=== PATIENT | female | born 1950 | race Caucasian/White ===

== ENCOUNTER 2022-11-23 22:45 | Observation (INO) | payer MEDICARE, OTHER, SELFPAY ==
[2022-11-23 22:52] VITALS: BP 189/91; PULSE 68; RESP 17; TEMP 36.6; O2SAT 98; BMI 29.2
[2022-11-24] VITALS (21 sets, daily range): BP systolic 139–190; BP diastolic 64–89; PULSE 62–79; RESP 14–22; TEMP 36.6–37.3; O2SAT 92–97; BMI 29.0
--- NOTE | 2022-11-24 | DI.CT.S_ITS ---
PROCEDURE: CT ANGIO HEAD AND NECK INDICATIONS: syncope TECHNIQUE: After the administration of intravenous contrast, 1 mm thick sections acquired from the aortic arch through the [place]. Post-contrast 4.5 mm thick sections then re-acquired from the foramen magnum to the vertex. 3-dimensional dmngjps-fptskfrvo-jdejteqdae (MIP) and/or volume rendering reformats were acquired of the central intracranial vasculature and neck separately. For radiation dose reduction, the following was used: automated exposure control, adjustment of mA and/or kV according to patient size. COMPARISON: [facility], CT, CT HEAD/BRAIN WO CON, 11/24/2022, 4:03. FINDINGS: Image quality: Good Anterior circulation: ICAs: Mild calcifications. ACAs: Normal and symmetric MCAs: Normal and symmetric AComm: No aneurysm Venous sinuses: patent Posterior circulation: Dominance: Equal Vertebral arteries: No stenosis or occlusion. No aneurysm. Basilar artery: Unremarkable PComms: No aneurysm director of recruitment: Unremarkable NECK ANGIOGRAPHY Aortic arch and subclavian arteries: Normal flow, no aneurysm. CCAs: No stenosis, occlusion, or aneurysm. ICA origins (by NASCET criteria): No hemodynamically significant narrowing. ICAs: No stenosis, occlusion or aneurysm. ECAs: Origins are patent. Vertebral arteries: Unremarkable overall. Mhob-ra-yyvrotrn right vertebral artery origin calcifications. Extradural origin of the right PICA. Soft tissues: No significant mass, aneurysm, or lymphadenopathy Lung apices: No pneumothorax Bones: No acute or suspicious abnormality. IMPRESSION: No large vessel occlusion or high-grade stenosis. If there is high concern for infarct, consider MRI evaluation. Any quantitative measurements of stenosis were performed using NASCET criteria. Dictated by: Lei Johnson M.D. on 11/24/2022 at 11:45 Approved by: Lei Johnson M.D. on 11/24/2022 at 11:50
--- NOTE | 2022-11-24 03:44 | ED.FALL ---
HPI - Fall <Sofy Keller MD - Last Filed: 12/03/22 18:08> General Chief Complaint: Fall Stated Complaint: rt hand injury, recent surgery and fall Time Seen by Provider: 11/24/22 03:44 Source: patient Mode of arrival: Ambulatory History of Present Illness HPI Narrative: 72-year-old woman with history of hypertension hypothyroidism and reflux disease presents to the emergency room complaining of a fall earlier today where she landed on her right hand and has some scratches to her face. She has little recollection of the events surrounding the fall. She was apparently walking [place] knows that she fell has the abrasions noted that she was able to get back to the road and does not remember anything beyond that. She had carpal tunnel surgery on the right hand on October 27 and landed on palm on the right side with the wound from the surgery opening slightly. She continues to have similar numbness in a radial nerve distribution as prior to the fall and after the surgery. She does not report a headache, neck pain has no other complaints of musculoskeletal injury. She does not report recently that she is been feverish, coughing, palpitations, chest pain, vomiting or diarrhea. She notes that she has had a lot of postnasal drip and has been successfully using a Neti pot. Has had a slight sore throat related to the postnasal drip but has not felt particularly ill. She does not describe headaches and aside from the amnesia regarding actual events, no acute neurologic complaints. She and her daughter both note that over the last 2-3 months she is been having slightly increased shuffling steps and a sensation that she is going to fall as she is walking downhill and has been feeling that she needs to walk faster and faster. She believes that is what was happening when she fell today and suspects that she probably stumbled over her dog. Related Data Home Medications Medication Instructions Recorded Confirmed aspirin 81 mg tablet,delayed 81 mg PO DAILY 12/11/18 11/23/22 release (Jaron Low Dose Aspirin) fluticasone propionate 50 1 spray intranasal DAILY 08/25/21 11/23/22 mcg/actuation nasal spray,suspension levothyroxine 25 mcg capsule 25 mcg PO DAILY 08/25/21 11/23/22 lisinopril 2.5 mg tablet 2.5 mg PO DAILY 08/25/21 11/23/22 omeprazole 20 mg capsule,delayed 20 mg PO DAILY 08/25/21 11/23/22 release Allergies Allergy/AdvReac Type Severity Reaction Status Date / Time No Known Drug Allergies Allergy Verified 11/23/22 22:56 Review of Systems <Sofy Keller MD - Last Filed: 12/03/22 18:08> Review of Systems Narrative: Remainder of complete review of systems is otherwise unremarkable except for that included in the HPI. Patient History <Sofy Keller MD - Last Filed: 12/03/22 18:08> Medical History History of ectopic Hypertension Hypothyroidism (acquired) Family History Mother Cancer Social History household members: spouse Smoking Status: Never smoker Smoking Status: Never smoker alcohol intake frequency: other Substance Use Type: does not use Exam <Sofy Keller MD - Last Filed: 12/03/22 18:08> Initial Vital Signs Initial Vital Signs: Vital Signs Temperature 98 F 11/23/22 22:52 Pulse Rate 68 11/23/22 22:52 Respiratory Rate 17 11/23/22 22:52 Blood Pressure 189/91 H 11/23/22 22:52 Pulse Oximetry 98 11/23/22 22:52 Oxygen Delivery Method 11/23/22 22:52 General: Healthy appearing, in no acute distress. Able to give a complete and coherent history. Well-nourished well-developed HEENT: Moist mucous membranes, normal sclera with reactive pupils, abrasion to the left cheek and left side of her chin. Both seem to be minor but need to be further cleaned to fully assess Neck: No midline cervical spine tenderness, supple Respiratory: Lungs are clear to auscultation, no wheezing no rales no rhonchi. Full and symmetrical air movement Cardiac: Regular rate and rhythm no murmurs no bruits Abdomen: Soft, nontender, good bowel tones, no flank pain Skin: Warm and dry, no rashes Neurologic: Grossly neurologically intact with no obvious asymmetries or abnormalities. NIH score of 0 Extremities: No trauma, well perfused. Right palmar surface has the carpal tunnel surgical wound that has open slightly with some dirt and debris in it. Will need to be cleaned. She is some swelling to her fingers on the right hand and notes some numbness in the thumb index and middle finger that is unchanged Psych: Cooperative, appropriate insight and affect <Frankie Chase MD - Last Filed: 12/09/22 07:45> Initial Vital Signs Initial Vital Signs: Vital Signs Temperature 98 F 11/23/22 22:52 Pulse Rate 68 11/23/22 22:52 Respiratory Rate 17 11/23/22 22:52 Blood Pressure 189/91 H 11/23/22 22:52 Pulse Oximetry 98 11/23/22 22:52 Oxygen Delivery Method 11/23/22 22:52 Course <Sofy Keller MD - Last Filed: 12/03/22 18:08> Orders Ordered: Discontinued Medications Acetaminophen (Acetaminophen 325 Mg Tablet) 650 mg PO Q6H PRN PRN Reason: Fever/Mild Pain (1-3) Last Admin: 11/25/22 08:07 Dose: 650 mg Documented By: Admin: 11/24/22 16:43 Dose: 650 mg Documented By: BT Aspirin (Aspirin Ec 81 Mg Tablet) 81 mg PO DAILY [facility] Last Admin: 11/25/22 08:07 Dose: 81 mg Documented By: Admin: 11/24/22 12:21 Dose: 81 mg Documented By: BT Bacitracin (Bacitracin Oint 0.9 Gm Pckt) 1 applic TOP NOW ONE Stop: 11/24/22 05:30 Last Admin: 11/24/22 06:48 Dose: 1 applic Documented By: CHANDANA Enoxaparin Sodium (Enoxaparin 40 Mg/0.4 Ml Syringe) 40 mg SUBCUT DAILY [facility] Last Admin: 11/25/22 08:07 Dose: Not Given Documented By: Admin: 11/24/22 11:08 Dose: 40 mg Documented By: ROZ Lactated Ringer's (Lactated Ringers) 1,000 mls @ 100 mls/hr IV CONT [facility] Stop: 11/24/22 22:59 Last Admin: 11/24/22 12:13 Dose: Not Given Documented By: BT Thiamine HCl 500 mg/ Sodium (Chloride) 105 mls @ 420 mls/hr IV NOW ONE Stop: 11/24/22 11:31 Last Infusion: 11/24/22 13:26 Dose: 420 mls/hr Documented By: Admin: 11/24/22 12:21 Dose: 420 mls/hr Documented By: DAVID Levothyroxine Sodium (Levothyroxine 25 Mcg Tablet) 25 mcg PO 0600 [facility] Last Admin: 11/25/22 05:19 Dose: 25 mcg Documented By: ZIA Lidocaine/Prilocaine (Lidocaine/Prilocaine 30 Gm) 1 applic TOP NOW ONE Stop: 11/24/22 03:50 Last Admin: 11/24/22 07:06 Dose: Not Given Documented By: CHANDANA Lidocaine/Prilocaine (Lidocaine/Prilocaine 30 Gm) 1 applic TOP NOW ONE Stop: 11/24/22 03:54 Last Admin: 11/24/22 07:06 Dose: Not Given Documented By: CHANDANA Lidocaine/Prilocaine (Lidocaine/Prilocaine 30 Gm) 1 applic TOP NOW ONE Stop: 11/24/22 03:58 Last Admin: 11/24/22 07:06 Dose: Not Given Documented By: CHANDANA Lidocaine/Prilocaine (Lidocaine/Prilocaine 5 Gm) 5 gm TOP NOW ONE Stop: 11/24/22 07:01 Last Admin: 11/24/22 04:00 Dose: 5 gm Documented By: CHANDANA Lisinopril (Lisinopril 5 Mg Tablet) 5 mg PO NOW ONE Stop: 11/24/22 09:37 Last Admin: 11/24/22 10:11 Dose: 5 mg Documented By: ROZ Melatonin (Melatonin 3 Mg Tablet) 6 mg PO BEDTIME PRN PRN Reason: Insomnia Naloxone HCl (Naloxone 0.4 Mg/Ml Vial) 0.2 mg IV Q2MIN PRN PRN Reason: Opiate Reversal Pantoprazole Sodium (Pantoprazole Dr 20 Mg Tablet) 20 mg PO 0600 [facility] Last Admin: 11/25/22 05:19 Dose: 20 mg Documented By: ZIA Polyethylene Glycol (Polyethylene Glycol 3350 17 Gm Powd.Pack) 17 gm PO DAILY PRN PRN Reason: Constipation Sennosides (Sennosides 8.6 Mg Tablet) 8.6 mg PO BID PRN PRN Reason: Constipation Vital Signs Vital signs: Vital Signs - 8 hr 11/24/22 05:05 11/24/22 05:30 11/24/22 05:30 Pulse Rate 64 63 Respiratory Rate 19 20 Blood Pressure 176/82 H Pulse Oximetry 97 96 Oxygen Delivery Method Room Air 11/24/22 06:00 11/24/22 06:30 11/24/22 06:37 Pulse Rate 62 63 Respiratory Rate 21 Blood Pressure 180/86 H Pulse Oximetry 96 97 Oxygen Delivery Method 11/24/22 06:37 11/24/22 07:00 11/24/22 07:00 Pulse Rate 64 66 Respiratory Rate 22 22 Blood Pressure 190/86 H Pulse Oximetry 95 95 Oxygen Delivery Method 11/24/22 10:11 Pulse Rate 67 Respiratory Rate Blood Pressure 163/89 H Pulse Oximetry Oxygen Delivery Method <Frankie Chase MD - Last Filed: 12/09/22 07:45> Orders Ordered: Discontinued Medications Acetaminophen (Acetaminophen 325 Mg Tablet) 650 mg PO Q6H PRN PRN Reason: Fever/Mild Pain (1-3) Last Admin: 11/25/22 08:07 Dose: 650 mg Documented By: Admin: 11/24/22 16:43 Dose: 650 mg Documented By: BT Aspirin (Aspirin Ec 81 Mg Tablet) 81 mg PO DAILY [facility] Last Admin: 11/25/22 08:07 Dose: 81 mg Documented By: Admin: 11/24/22 12:21 Dose: 81 mg Documented By: DAVID Bacitracin (Bacitracin Oint 0.9 Gm Pckt) 1 applic TOP NOW ONE Stop: 11/24/22 05:30 Last Admin: 11/24/22 06:48 Dose: 1 applic Documented By: BONNIEG Enoxaparin Sodium (Enoxaparin 40 Mg/0.4 Ml Syringe) 40 mg SUBCUT DAILY [facility] Last Admin: 11/25/22 08:07 Dose: Not Given Documented By: Admin: 11/24/22 11:08 Dose: 40 mg Documented By: ROZ Lactated Ringer's (Lactated Ringers) 1,000 mls @ 100 mls/hr IV CONT [facility] Stop: 11/24/22 22:59 Last Admin: 11/24/22 12:13 Dose: Not Given Documented By: BT Thiamine HCl 500 mg/ Sodium (Chloride) 105 mls @ 420 mls/hr IV NOW ONE Stop: 11/24/22 11:31 Last Infusion: 11/24/22 13:26 Dose: 420 mls/hr Documented By: Admin: 11/24/22 12:21 Dose: 420 mls/hr Documented By: DAVID Levothyroxine Sodium (Levothyroxine 25 Mcg Tablet) 25 mcg PO 0600 [facility] Last Admin: 11/25/22 05:19 Dose: 25 mcg Documented By: ZIA Lidocaine/Prilocaine (Lidocaine/Prilocaine 30 Gm) 1 applic TOP NOW ONE Stop: 11/24/22 03:50 Last Admin: 11/24/22 07:06 Dose: Not Given Documented By: CHANDANA Lidocaine/Prilocaine (Lidocaine/Prilocaine 30 Gm) 1 applic TOP NOW ONE Stop: 11/24/22 03:54 Last Admin: 11/24/22 07:06 Dose: Not Given Documented By: CHANDANA Lidocaine/Prilocaine (Lidocaine/Prilocaine 30 Gm) 1 applic TOP NOW ONE Stop: 11/24/22 03:58 Last Admin: 11/24/22 07:06 Dose: Not Given Documented By: CHANDANA Lidocaine/Prilocaine (Lidocaine/Prilocaine 5 Gm) 5 gm TOP NOW ONE Stop: 11/24/22 07:01 Last Admin: 11/24/22 04:00 Dose: 5 gm Documented By: CHANDANA Lisinopril (Lisinopril 5 Mg Tablet) 5 mg PO NOW ONE Stop: 11/24/22 09:37 Last Admin: 11/24/22 10:11 Dose: 5 mg Documented By: ROZ Melatonin (Melatonin 3 Mg Tablet) 6 mg PO BEDTIME PRN PRN Reason: Insomnia Naloxone HCl (Naloxone 0.4 Mg/Ml Vial) 0.2 mg IV Q2MIN PRN PRN Reason: Opiate Reversal Pantoprazole Sodium (Pantoprazole Dr 20 Mg Tablet) 20 mg PO 0600 [facility] Last Admin: 11/25/22 05:19 Dose: 20 mg Documented By: ZIA Polyethylene Glycol (Polyethylene Glycol 3350 17 Gm Powd.Pack) 17 gm PO DAILY PRN PRN Reason: Constipation Sennosides (Sennosides 8.6 Mg Tablet) 8.6 mg PO BID PRN PRN Reason: Constipation Vital Signs Vital signs: Vital Signs - 8 hr 11/24/22 05:05 11/24/22 05:30 01/25/23 05:30 Pulse Rate 64 63 Respiratory Rate 19 20 Blood Pressure 176/82 H Pulse Oximetry 97 96 Oxygen Delivery Method Room Air 11/24/22 06:00 11/24/22 06:30 11/24/22 06:37 Pulse Rate 62 63 Respiratory Rate 21 Blood Pressure 180/86 H Pulse Oximetry 96 97 Oxygen Delivery Method 11/24/22 06:37 11/24/22 07:00 11/24/22 07:00 Pulse Rate 64 66 Respiratory Rate 22 22 Blood Pressure 190/86 H Pulse Oximetry 95 95 Oxygen Delivery Method 11/24/22 10:11 Pulse Rate 67 Respiratory Rate Blood Pressure 163/89 H Pulse Oximetry Oxygen Delivery Method MDM - Fall <Sofy Keller MD - Last Filed: 12/03/22 18:08> Lab Data 11/24/22 04:30 11/24/22 04:30 Labs: Lab Results 11/24/22 11/24/22 11/24/22 Range/Units 04:30 04:30 04:30 WBC 11.2 H (4.5-11.0) X10^3/uL RBC 4.58 (4.0-5.2) X10^6/uL Hgb 13.4 (12.0-16.0) g/dL Hct 40.3 (36-46) % MCV 87.9 (80-100) fL MCH 29.3 (26-34) PG MCHC 33.4 (30-36) % RDW 13.4 (11.6-14.8) % Plt Count 208 (150-400) X10^3/uL Neut % (Auto) 55.7 (50-75) % Lymph % (Auto) 29.5 (25-40) % [place] % (Auto) 13.1 (3-14) % Eos % (Auto) 1.1 L (2-4) % Baso % (Auto) 0.6 (0-2) % Neut # (Auto) 6200 (2951-0108) /uL Lymph # (Auto) 3300 (4177-0611) /uL [place] # (Auto) 1500 H (0-900) /uL Eos # (Auto) 100 (0-450) /uL Baso # (Auto) 100 (0-100) /uL D-Dimer 1141 H (<500) ng/ml Sodium 140 (137-145) mmol/L Potassium 3.8 (3.4-5.1) mmol/L Chloride 103 (98-107) mmol/L Carbon Dioxide 27 (22-32) mmol/L BUN 22 H (7-17) mg/dL Creatinine 0.71 (0.52-1.04) mg/dL Estimated GFR > 60 (>60) mL/min BUN/Creatinine Ratio 31.0 H (6-22) Glucose 119 H (80-110) mg/dL Calcium 9.1 (8.4-10.2) mg/dL Magnesium 2.1 (1.6-2.3) mg/dL Total Bilirubin 0.5 (0.2-1.3) mg/dL AST 26 (14-36) IU/L ALT 22 (<35) IU/L Alkaline Phosphatase 102 (38-126) U/L Troponin I 0.079 H (0.01-0.034) ng/mL Total Protein 7.5 (6.3-8.2) g/dL Albumin 4.2 (3.5-5.0) g/dL Globulin 3.3 (1.7-4.1) g/dL Albumin/Globulin Ratio 1.3 (1.0-2.8) Urine Color Urine Appearance Urine pH (4.5-8.0) Ur Specific [place] (1.000-1.035) Urine Protein (Negative) Urine Glucose (UA) (Negative) g/dL Urine Ketones (NEGATIVE) Urine Occult Blood (Negative) Urine Nitrate (Negative) Urine Bilirubin (NEGATIVE) Urine Urobilinogen (0.2) E.U./dL Ur Leukocyte Esterase (NEGATIVE) Urine RBC (0-5/HPF) Urine WBC (0-5/HPF) Urine Bacteria (None) Ur Culture Indicated? Micro UA Comment U Opiates 300ng/mL cut (Negative) Ur Oxycodone Screen (Negative) Urine Methadone Screen (Negative) Ur Barbiturates Screen (Negative) U Tricyclic Antidepress (Negative) Ur Phencyclidine Scrn (Negative) Ur Amphetamines Screen (Negative) U Methamphetamines Scrn (Negative) Ur MDMA Scrn (Ecstasy) (Negative) U Benzodiazepines Scrn (Negative) Urine Cocaine Screen (Negative) U Marijuana (THC) Screen (Negative) Ethyl Alcohol < 10 ( - 10) mg/dL SARS-CoV-2 (PCR) (Negative) 11/24/22 11/24/22 11/24/22 Range/Units 06:30 10:06 11:00 WBC (4.5-11.0) X10^3/uL RBC (4.0-5.2) X10^6/uL Hgb (12.0-16.0) g/dL Hct (36-46) % MCV (80-100) fL MCH (26-34) PG MCHC (30-36) % RDW (11.6-14.8) % Plt Count (150-400) X10^3/uL Neut % (Auto) (50-75) % Lymph % (Auto) (25-40) % [place] % (Auto) (3-14) % Eos % (Auto) (2-4) % Baso % (Auto) (0-2) % Neut # (Auto) (8540-8915) /uL Lymph # (Auto) (7184-6379) /uL [place] # (Auto) (0-900) /uL Eos # (Auto) (0-450) /uL Baso # (Auto) (0-100) /uL D-Dimer (<500) ng/ml Sodium (137-145) mmol/L Potassium (3.4-5.1) mmol/L Chloride (98-107) mmol/L Carbon Dioxide (22-32) mmol/L BUN (7-17) mg/dL Creatinine (0.52-1.04) mg/dL Estimated GFR (>60) mL/min BUN/Creatinine Ratio (6-22) Glucose (80-110) mg/dL Calcium (8.4-10.2) mg/dL Magnesium (1.6-2.3) mg/dL Total Bilirubin (0.2-1.3) mg/dL AST (14-36) IU/L ALT (<35) IU/L Alkaline Phosphatase (38-126) U/L Troponin I 0.075 H (0.01-0.034) ng/mL Total Protein (6.3-8.2) g/dL Albumin (3.5-5.0) g/dL Globulin (1.7-4.1) g/dL Albumin/Globulin Ratio (1.0-2.8) Urine Color Yellow Urine Appearance Clear Urine pH 6.0 (4.5-8.0) Ur Specific [place] 1.010 (1.000-1.035) Urine Protein Negative (Negative) Urine Glucose (UA) Negative (Negative) g/dL Urine Ketones Negative (NEGATIVE) Urine Occult Blood Negative (Negative) Urine Nitrate Negative (Negative) Urine Bilirubin Negative (NEGATIVE) Urine Urobilinogen 0.2 (0.2) E.U./dL Ur Leukocyte Esterase Negative (NEGATIVE) Urine RBC None seen (0-5/HPF) Urine WBC None seen (0-5/HPF) Urine Bacteria None seen (None) Ur Culture Indicated? Cult not indicated Micro UA Comment Microscopic normal U Opiates 300ng/mL cut (Negative) Ur Oxycodone Screen (Negative) Urine Methadone Screen (Negative) Ur Barbiturates Screen (Negative) U Tricyclic Antidepress (Negative) Ur Phencyclidine Scrn (Negative) Ur Amphetamines Screen (Negative) U Methamphetamines Scrn (Negative) Ur MDMA Scrn (Ecstasy) (Negative) U Benzodiazepines Scrn (Negative) Urine Cocaine Screen (Negative) U Marijuana (THC) Screen (Negative) Ethyl Alcohol ( - 10) mg/dL SARS-CoV-2 (PCR) Negative (Negative) 11/24/22 Range/Units 11:00 WBC (4.5-11.0) X10^3/uL RBC (4.0-5.2) X10^6/uL Hgb (12.0-16.0) g/dL Hct (36-46) % MCV (80-100) fL MCH (26-34) PG MCHC (30-36) % RDW (11.6-14.8) % Plt Count (150-400) X10^3/uL Neut % (Auto) (50-75) % Lymph % (Auto) (25-40) % [place] % (Auto) (3-14) % Eos % (Auto) (2-4) % Baso % (Auto) (0-2) % Neut # (Auto) (0472-2833) /uL Lymph # (Auto) (2137-6461) /uL [place] # (Auto) (0-900) /uL Eos # (Auto) (0-450) /uL Baso # (Auto) (0-100) /uL D-Dimer (<500) ng/ml Sodium (137-145) mmol/L Potassium (3.4-5.1) mmol/L Chloride (98-107) mmol/L Carbon Dioxide (22-32) mmol/L BUN (7-17) mg/dL Creatinine (0.52-1.04) mg/dL Estimated GFR (>60) mL/min BUN/Creatinine Ratio (6-22) Glucose (80-110) mg/dL Calcium (8.4-10.2) mg/dL Magnesium (1.6-2.3) mg/dL Total Bilirubin (0.2-1.3) mg/dL AST (14-36) IU/L ALT (<35) IU/L Alkaline Phosphatase (38-126) U/L Troponin I (0.01-0.034) ng/mL Total Protein (6.3-8.2) g/dL Albumin (3.5-5.0) g/dL Globulin (1.7-4.1) g/dL Albumin/Globulin Ratio (1.0-2.8) Urine Color Urine Appearance Urine pH (4.5-8.0) Ur Specific [place] (1.000-1.035) Urine Protein (Negative) Urine Glucose (UA) (Negative) g/dL Urine Ketones (NEGATIVE) Urine Occult Blood (Negative) Urine Nitrate (Negative) Urine Bilirubin (NEGATIVE) Urine Urobilinogen (0.2) E.U./dL Ur Leukocyte Esterase (NEGATIVE) Urine RBC (0-5/HPF) Urine WBC (0-5/HPF) Urine Bacteria (None) Ur Culture Indicated? Micro UA Comment U Opiates 300ng/mL cut Positive H (Negative) Ur Oxycodone Screen Negative (Negative) Urine Methadone Screen Negative (Negative) Ur Barbiturates Screen Negative (Negative) U Tricyclic Antidepress Negative (Negative) Ur Phencyclidine Scrn Negative (Negative) Ur Amphetamines Screen Negative (Negative) U Methamphetamines Scrn Negative (Negative) Ur MDMA Scrn (Ecstasy) Negative (Negative) U Benzodiazepines Scrn Negative (Negative) Urine Cocaine Screen Negative (Negative) U Marijuana (THC) Screen Negative (Negative) Ethyl Alcohol ( - 10) mg/dL SARS-CoV-2 (PCR) (Negative) Imaging Data Chest x-ray: Radiologist's Impression: No acute pulmonary disease CT - cervical spine: Radiologist's Impression: Multilevel spondylitic changes of the cervical spine without acute injury CT scan - head: Radiologist's Impression: No acute intracranial abnormality ECG Data Interpretation: Sinus rhythm, rate of 68 Nonspecific T-wave changes Prolonged QT at 478 milliseconds No acute ischemia MDM Narrative Medical decision making narrative: CC: Fall, abrasion to the hand with prior surgical site and amnesia regarding fall. Complicating co-morbidities: Prior surgery to the hand, hypertension hyperlipidemia Corroborating data: Data collected from: patient, daughter Medical records reviewed: Annual answerer visits reviewed Differential considered: Mechanical fall with head injury and amnesia, stroke, syncope with head injury and amnesia, may need further evaluation for the increasing shuffling gait and the sensation that she is falling if she is walking downhill has no other parkinsonian type symptoms or pill roll tremor at this time. Acute coronary syndrome, cardiac arrhythmia, intracranial mass or lesion. Exam documented above, pertinent findings include: Amnesia, minor abrasions to the cheek and the chin. Wound to the palmar surface right hand and otherwise unremarkable neurologic exam. Lab Test results independently reviewed as above. Pertinent findings: Elevated troponin at 0.079 without other explanation. Repeat troponin will be ordered Chemistries are otherwise unremarkable CBC shows mild leukocytosis with white count 11.2 without left shift Independently reviewed EKG as above Imaging studies independently reviewed: CT scan of the head does not show any acute intracranial injury. C-spine is unremarkable. Chest x-ray is unremarkable Consultations: Treatments: Re-evaluations: 6:00 a.m.. Findings reviewed with patient and her daughter. Hand is re-evaluated. Wound has reopened slightly but is not down to fascial layers. It is dressed with bacitracin and gauze. Explained to patient and her daughter that the troponin was slightly elevated and will need to be repeated. Also explained that given this unexplained syncopal episode with amnesia that hospitalization for 24 hours or more may be recommended. Will add D-dimer to the troponin when it is drawn at 6:30 a.m.. If positive will need CT angiogram of the chest. I explained that Dr. Bishop will be taking over her care. Questions were answered. Discussion: Disposition: see below, along with detailed discharge instructions that have been reviewed with patient as well as indications for ED re-evaluation and additional outpatient follow up <Frankie Chase MD - Last Filed: 12/09/22 07:45> Lab Data Labs: Lab Results 11/24/22 11/24/22 11/24/22 Range/Units 04:30 04:30 04:30 WBC 11.2 H (4.5-11.0) X10^3/uL RBC 4.58 (4.0-5.2) X10^6/uL Hgb 13.4 (12.0-16.0) g/dL Hct 40.3 (36-46) % MCV 87.9 (80-100) fL MCH 29.3 (26-34) PG MCHC 33.4 (30-36) % RDW 13.4 (11.6-14.8) % Plt Count 208 (150-400) X10^3/uL Neut % (Auto) 55.7 (50-75) % Lymph % (Auto) 29.5 (25-40) % [place] % (Auto) 13.1 (3-14) % Eos % (Auto) 1.1 L (2-4) % Baso % (Auto) 0.6 (0-2) % Neut # (Auto) 6200 (9240-6856) /uL Lymph # (Auto) 3300 (1299-4743) /uL [place] # (Auto) 1500 H (0-900) /uL Eos # (Auto) 100 (0-450) /uL Baso # (Auto) 100 (0-100) /uL D-Dimer 1141 H (<500) ng/ml Sodium 140 (137-145) mmol/L Potassium 3.8 (3.4-5.1) mmol/L Chloride 103 (98-107) mmol/L Carbon Dioxide 27 (22-32) mmol/L BUN 22 H (7-17) mg/dL Creatinine 0.71 (0.52-1.04) mg/dL Estimated GFR > 60 (>60) mL/min BUN/Creatinine Ratio 31.0 H (6-22) Glucose 119 H (80-110) mg/dL Calcium 9.1 (8.4-10.2) mg/dL Magnesium 2.1 (1.6-2.3) mg/dL Total Bilirubin 0.5 (0.2-1.3) mg/dL AST 26 (14-36) IU/L ALT 22 (<35) IU/L Alkaline Phosphatase 102 (38-126) U/L Troponin I 0.079 H (0.01-0.034) ng/mL Total Protein 7.5 (6.3-8.2) g/dL Albumin 4.2 (3.5-5.0) g/dL Globulin 3.3 (1.7-4.1) g/dL Albumin/Globulin Ratio 1.3 (1.0-2.8) Urine Color Urine Appearance Urine pH (4.5-8.0) Ur Specific [place] (1.000-1.035) Urine Protein (Negative) Urine Glucose (UA) (Negative) g/dL Urine Ketones (NEGATIVE) Urine Occult Blood (Negative) Urine Nitrate (Negative) Urine Bilirubin (NEGATIVE) Urine Urobilinogen (0.2) E.U./dL Ur Leukocyte Esterase (NEGATIVE) Urine RBC (0-5/HPF) Urine WBC (0-5/HPF) Urine Bacteria (None) Ur Culture Indicated? Micro UA Comment U Opiates 300ng/mL cut (Negative) Ur Oxycodone Screen (Negative) Urine Methadone Screen (Negative) Ur Barbiturates Screen (Negative) U Tricyclic Antidepress (Negative) Ur Phencyclidine Scrn (Negative) Ur Amphetamines Screen (Negative) U Methamphetamines Scrn (Negative) Ur MDMA Scrn (Ecstasy) (Negative) U Benzodiazepines Scrn (Negative) Urine Cocaine Screen (Negative) U Marijuana (THC) Screen (Negative) Ethyl Alcohol < 10 ( - 10) mg/dL SARS-CoV-2 (PCR) (Negative) 11/24/22 11/24/22 11/24/22 Range/Units 06:30 10:06 11:00 WBC (4.5-11.0) X10^3/uL RBC (4.0-5.2) X10^6/uL Hgb (12.0-16.0) g/dL Hct (36-46) % MCV (80-100) fL MCH (26-34) PG MCHC (30-36) % RDW (11.6-14.8) % Plt Count (150-400) X10^3/uL Neut % (Auto) (50-75) % Lymph % (Auto) (25-40) % [place] % (Auto) (3-14) % Eos % (Auto) (2-4) % Baso % (Auto) (0-2) % Neut # (Auto) (3412-7730) /uL Lymph # (Auto) (7280-2242) /uL [place] # (Auto) (0-900) /uL Eos # (Auto) (0-450) /uL Baso # (Auto) (0-100) /uL D-Dimer (<500) ng/ml Sodium (137-145) mmol/L Potassium (3.4-5.1) mmol/L Chloride (98-107) mmol/L Carbon Dioxide (22-32) mmol/L BUN (7-17) mg/dL Creatinine (0.52-1.04) mg/dL Estimated GFR (>60) mL/min BUN/Creatinine Ratio (6-22) Glucose (80-110) mg/dL Calcium (8.4-10.2) mg/dL Magnesium (1.6-2.3) mg/dL Total Bilirubin (0.2-1.3) mg/dL AST (14-36) IU/L ALT (<35) IU/L Alkaline Phosphatase (38-126) U/L Troponin I 0.075 H (0.01-0.034) ng/mL Total Protein (6.3-8.2) g/dL Albumin (3.5-5.0) g/dL Globulin (1.7-4.1) g/dL Albumin/Globulin Ratio (1.0-2.8) Urine Color Yellow Urine Appearance Clear Urine pH 6.0 (4.5-8.0) Ur Specific [place] 1.010 (1.000-1.035) Urine Protein Negative (Negative) Urine Glucose (UA) Negative (Negative) g/dL Urine Ketones Negative (NEGATIVE) Urine Occult Blood Negative (Negative) Urine Nitrate Negative (Negative) Urine Bilirubin Negative (NEGATIVE) Urine Urobilinogen 0.2 (0.2) E.U./dL Ur Leukocyte Esterase Negative (NEGATIVE) Urine RBC None seen (0-5/HPF) Urine WBC None seen (0-5/HPF) Urine Bacteria None seen (None) Ur Culture Indicated? Cult not indicated Micro UA Comment Microscopic normal U Opiates 300ng/mL cut (Negative) Ur Oxycodone Screen (Negative) Urine Methadone Screen (Negative) Ur Barbiturates Screen (Negative) U Tricyclic Antidepress (Negative) Ur Phencyclidine Scrn (Negative) Ur Amphetamines Screen (Negative) U Methamphetamines Scrn (Negative) Ur MDMA Scrn (Ecstasy) (Negative) U Benzodiazepines Scrn (Negative) Urine Cocaine Screen (Negative) U Marijuana (THC) Screen (Negative) Ethyl Alcohol ( - 10) mg/dL SARS-CoV-2 (PCR) Negative (Negative) 11/24/22 Range/Units 11:00 WBC (4.5-11.0) X10^3/uL RBC (4.0-5.2) X10^6/uL Hgb (12.0-16.0) g/dL Hct (36-46) % MCV (80-100) fL MCH (26-34) PG MCHC (30-36) % RDW (11.6-14.8) % Plt Count (150-400) X10^3/uL Neut % (Auto) (50-75) % Lymph % (Auto) (25-40) % [place] % (Auto) (3-14) % Eos % (Auto) (2-4) % Baso % (Auto) (0-2) % Neut # (Auto) (2771-5716) /uL Lymph # (Auto) (4258-7292) /uL [place] # (Auto) (0-900) /uL Eos # (Auto) (0-450) /uL Baso # (Auto) (0-100) /uL D-Dimer (<500) ng/ml Sodium (137-145) mmol/L Potassium (3.4-5.1) mmol/L Chloride (98-107) mmol/L Carbon Dioxide (22-32) mmol/L BUN (7-17) mg/dL Creatinine (0.52-1.04) mg/dL Estimated GFR (>60) mL/min BUN/Creatinine Ratio (6-22) Glucose (80-110) mg/dL Calcium (8.4-10.2) mg/dL Magnesium (1.6-2.3) mg/dL Total Bilirubin (0.2-1.3) mg/dL AST (14-36) IU/L ALT (<35) IU/L Alkaline Phosphatase (38-126) U/L Troponin I (0.01-0.034) ng/mL Total Protein (6.3-8.2) g/dL Albumin (3.5-5.0) g/dL Globulin (1.7-4.1) g/dL Albumin/Globulin Ratio (1.0-2.8) Urine Color Urine Appearance Urine pH (4.5-8.0) Ur Specific [place] (1.000-1.035) Urine Protein (Negative) Urine Glucose (UA) (Negative) g/dL Urine Ketones (NEGATIVE) Urine Occult Blood (Negative) Urine Nitrate (Negative) Urine Bilirubin (NEGATIVE) Urine Urobilinogen (0.2) E.U./dL Ur Leukocyte Esterase (NEGATIVE) Urine RBC (0-5/HPF) Urine WBC (0-5/HPF) Urine Bacteria (None) Ur Culture Indicated? Micro UA Comment U Opiates 300ng/mL cut Positive H (Negative) Ur Oxycodone Screen Negative (Negative) Urine Methadone Screen Negative (Negative) Ur Barbiturates Screen Negative (Negative) U Tricyclic Antidepress Negative (Negative) Ur Phencyclidine Scrn Negative (Negative) Ur Amphetamines Screen Negative (Negative) U Methamphetamines Scrn Negative (Negative) Ur MDMA Scrn (Ecstasy) Negative (Negative) U Benzodiazepines Scrn Negative (Negative) Urine Cocaine Screen Negative (Negative) U Marijuana (THC) Screen Negative (Negative) Ethyl Alcohol ( - 10) mg/dL SARS-CoV-2 (PCR) (Negative) MDM Narrative Medical decision making narrative: CC: Fall, abrasion to the hand with prior surgical site and amnesia regarding fall. Complicating co-morbidities: Prior surgery to the hand, hypertension hyperlipidemia Corroborating data: Data collected from: patient, daughter Medical records reviewed: Annual answerer visits reviewed Differential considered: Mechanical fall with head injury and amnesia, stroke, syncope with head injury and amnesia, may need further evaluation for the increasing shuffling gait and the sensation that she is falling if she is walking downhill has no other parkinsonian type symptoms or pill roll tremor at this time. Acute coronary syndrome, cardiac arrhythmia, intracranial mass or lesion. Exam documented above, pertinent findings include: Amnesia, minor abrasions to the cheek and the chin. Wound to the palmar surface right hand and otherwise unremarkable neurologic exam. Lab Test results independently reviewed as above. Pertinent findings: Elevated troponin at 0.079 without other explanation. Repeat troponin will be ordered Chemistries are otherwise unremarkable CBC shows mild leukocytosis with white count 11.2 without left shift Independently reviewed EKG as above Imaging studies independently reviewed: CT scan of the head does not show any acute intracranial injury. C-spine is unremarkable. Chest x-ray is unremarkable, CT chest no PE Consultations: 10:45 a.m. Spoke with hospitalist for admit, Dr. Yoon Treatments: Wound care for right hand. Re-evaluations: 6:00 a.m.. Findings reviewed with patient and her daughter. Hand is re-evaluated. Wound has reopened slightly but is not down to fascial layers. It is dressed with bacitracin and gauze. Explained to patient and her daughter that the troponin was slightly elevated and will need to be repeated. Also explained that given this unexplained syncopal episode with amnesia that hospitalization for 24 hours or more may be recommended. Will add D-dimer to the troponin when it is drawn at 6:30 a.m.. If positive will need CT angiogram of the chest. I explained that Dr. Bishop will be taking over her care. Questions were answered. 7:00 a.m., sign-out from Dr. Gates, repeat troponin is pending. CT angiogram chest PE protocol has been ordered. Patient will likely need to be admitted or syncope workup. Discussion: Appropriate for admission. Patient will need syncope workup including echocardiogram and MRI of the brain. At this time troponin levels are nonspecific. Patient denies denies any chest pain. EKG at this times reassuring. Reviewed with patient family agree for admit. Reviewed hospitalist agree for admit as well. Disposition: Admit Discharge Plan Departure Patient Disposition: Admitted as Observation Clinical Impression: Syncope Admit Date/Time: 11/24/22 11:05 Admit Provider: Gio Yoon
--- NOTE | 2022-11-24 03:57 | DI.CT.S_ITS ---
PROCEDURE: CT HEAD/BRAIN WO CON INDICATIONS: fall, amnesia regarding event TECHNIQUE: Noncontrast 4.5 mm thick angled axial sections acquired from the foramen magnum to the vertex, with coronal and sagittal reformats. For radiation dose reduction, the following was used: automated exposure control, adjustment of mA and/or kV according to patient size. COMPARISON: None. FINDINGS: Image quality: Excellent. CSF spaces: Basal cisterns are patent. No extra-axial fluid collections. The ventricles are symmetric in size and shape. Mild bilateral ventriculomegaly. Brain: No intracranial bleeds or masses. There is cerebral volume loss for age, with resultant ventricular and sulcal prominence. There are periventricular and deep white matter chronic small vessel ischemic changes. There is intracranial internal carotid artery atherosclerosis. Skull and face: Calvarium and visualized facial bones appear intact, without suspicious lesions. Sinuses: Visualized sinuses and mastoids are clear. IMPRESSION: 1. Mild bilateral ventriculomegaly, small vessel ischemic change. 2. No evidence acute intracranial process. Comment: Final report is concordant with preliminary interpretation provided by [facility]. Dictated by: Zack Watters M.D. on 11/24/2022 at 8:02 Approved by: Zack Watters M.D. on 11/24/2022 at 8:04
--- NOTE | 2022-11-24 03:58 | DI.CT.S_ITS ---
PROCEDURE: CT CERVICAL SPINE WO CON INDICATIONS: fall TECHNIQUE: Noncontrast 3 mm thick sections acquired from the skull base to the T4 level. Sagittal and coronal reformats were then constructed. For radiation dose reduction, the following was used: automated exposure control, adjustment of mA and/or kV according to patient size. COMPARISON: None. FINDINGS: Image quality: Excellent. Bones: No fractures or dislocations. Visualized superior ribs are intact. Cervical spondylitic change with multilevel disc height loss and disc osteophyte complexes. There are disc bulges or mild protrusions at C3-C4, C4-C5, and C5-C6. There is disc osteophyte complex at C6-C7. These disc bulges/protrusions contribute to canal stenosis at C3-C4 through C6-C7. Soft tissues: Prevertebral soft tissues are normal in thickness. No paravertebral hematomas. No apical pneumothoraces. IMPRESSION: 1. No evidence acute cervical fracture or dislocation. 2. Cervical spondylitic change with multilevel canal stenosis. Comment: Final report is concordant with preliminary interpretation provided by [facility]. Dictated by: Zack Watters M.D. on 11/24/2022 at 8:04 Approved by: Zack Watters M.D. on 11/24/2022 at 8:38
[2022-11-24] MEDS: LIDOCAINE/PRILOCAINE 5 GM TOP (04:00)
[2022-11-24 04:46] LABS: Add Manual Diff / Slide Review NO; Basophils Absolute Auto 100 /uL (0-100); Basophils Percent Auto 0.6 % (0-2); Eosinophils Absolute Auto 100 /uL (0-450); Eosinophils Percent Auto 1.1 % (2-4); Hematocrit 40.3 % (36-46); Hemoglobin 13.4 g/dL (12.0-16.0); Lymphocytes Absolute Auto 3300 /uL (1100-4500); Lymphocytes Percent Auto 29.5 % (25-40); Mean Corpuscular HGB Conc 33.4 % (30-36); Mean Corpuscular Hemoglobin 29.3 PG (26-34); Mean Corpuscular Volume 87.9 fL (80-100); Monocytes Absolute Auto 1500 /uL (0-900); Monocytes Percent Auto 13.1 % (3-14); Neutrophils Absolute Auto 6200 /uL (1500-7000); Neutrophils Percent Auto 55.7 % (50-75); Platelet Count 208 X10^3/uL (150-400); Red Blood Cell Count 4.58 X10^6/uL (4.0-5.2); Red Cell Distribution Width 13.4 % (11.6-14.8); White Blood Cell Count 11.2 X10^3/uL (4.5-11.0)
[2022-11-24 04:58] LABS: Alanine Aminotransferase 22 IU/L (<35); Albumin 4.2 g/dL (3.5-5.0); Albumin Globulin Ratio 1.3 (1.0-2.8); Alkaline Phosphatase 102 U/L (38-126); Aspartate Aminotransferase 26 IU/L (14-36); Bilirubin Total 0.5 mg/dL (0.2-1.3); Blood Urea Nitrogen 22 mg/dL (7-17); Calcium 9.1 mg/dL (8.4-10.2); Carbon Dioxide 27 mmol/L (22-32); Chloride 103 mmol/L (98-107); Estimated Glomerular Filt Rate > 60 mL/min (>60); Ethanol (ETOH) < 10 mg/dL; Globulin 3.3 g/dL (1.7-4.1); Glucose 119 mg/dL (80-110); HEMOLYSIS < 15 (0-50); Magnesium 2.1 mg/dL (1.6-2.3); Potassium 3.8 mmol/L (3.4-5.1); Sodium 140 mmol/L (137-145); Total Protein 7.5 g/dL (6.3-8.2)
[2022-11-24 05:09] LABS: Troponin I 0.079 ng/mL (0.01-0.034)
[2022-11-24 06:30] LABS: D Dimer 1141 ng/ml (<500)
[2022-11-24] MEDS: BACITRACIN OINT 0.9 GM PCKT 1 APPLIC TOP (06:48)
--- NOTE | 2022-11-24 07:00 | DI.CT.S_ITS ---
PROCEDURE: CT ANGIO CHEST PE PROTOCOL INDICATIONS: elevated d dimer. TECHNIQUE: After the administration of intravenous contrast, 2 mm thick sections acquired from the pulmonary apices to the posterior costophrenic angles. 3-dimensional maximum intensity projection (MIP) coronal and sagittal reformats were then acquired through the thorax. For radiation dose reduction, the following was used: automated exposure control, adjustment of mA and/or kV according to patient size. COMPARISON: None. FINDINGS: Image quality: Good Lungs and pleura: No consolidation or pleural effusion. No pulmonary nodule identified that requires follow-up imaging. Pulmonary micro nodules might represent granulomas and could be followed with optional chest CT in 1 year for high risk patients (5/66 on the right as an example) Mediastinum, heart, and esophagus: No pulmonary embolism identified. There are coronary calcifications. Small hiatal hernia and nonspecific thickening of the distal esophagus, not well evaluated on CT. Mild cardiomegaly and biatrial enlargement. No pathologic adenopathy by size criteria. Chest wall and thyroid: Unremarkable Upper abdomen: Left renal cyst. Limited arterial phase images of the upper abdomen, without gross abnormality. Bones: Degenerative changes. Partially visualized spinal curvature. No acute or suspicious osseous abnormality. Heterogeneous appearance of the vertebral bodies, probably degenerative in etiology unless the patient has a personal history of malignancy. IMPRESSION: No pulmonary embolism. No acute thoracic pathology. Other findings as above. Dictated by: Lei Johnson M.D. on 11/24/2022 at 8:08 Approved by: Lei Johnson M.D. on 11/24/2022 at 8:14
[2022-11-24 07:11] LABS: Troponin I 0.075 ng/mL (0.01-0.034)
[2022-11-24] MEDS: lisinopriL 5 MG TABLET PO (10:11)
[2022-11-24 10:33] LABS: COVID19 -Nasal RAPID Negative (Negative)
--- NOTE | 2022-11-24 10:48 | DI.ECHO.S_ITS ---
[place] +---------+ Hospital +---------+ : : [address] : : : : [id number] : : : : Phone: [phone]+ Echocardiogram Report + + :Name: NORA SOTO Study Date: 11/24/2022 Height: 63 in : :[facility] ReadingLocation: Weight: 165 lb : : Gender: Female BSA: 1.8 m2 : :: 1950 Age: 72 yrs BP: 165/82 mmHg: :Reason For Study: SYNCOPE : :Ordering Physician: ALLI, : :ZAIN Ruffin D.O Performed By: Janine Fierro : :Referring: ZAIN CARSON D.O : + + Interpretation Summary The ejection fraction is estimated to be 60-65%. There is no significant valvular heart disease. Procedure: A two-dimensional transthoracic echocardiogram with color flow and Doppler was performed. The study quality was technically adequate. There is no prior echocardiogram noted for this patient. The patient was in sinus rhythm with heart rates between 68-75 bpm during the exam. Left Ventricle: The left ventricle is normal in size and wall thickness. The ejection fraction is estimated to be 60-65%. Left ventricular wall motion is normal. Right Ventricle: The right ventricle is normal in size and function. Atria: The left atrium is mildly dilated. Right atrial size is normal. There is no Doppler evidence for an interatrial shunt. Mitral Valve: The mitral valve is normal in structure and function. There is trace mitral regurgitation. Aortic Valve: The aortic valve is trileaflet. The aortic valve opens well. There is no aortic valve stenosis. There is trace aortic regurgitation. Tricuspid Valve: The tricuspid valve is normal in structure and function. There is trace tricuspid regurgitation. The right ventricular systolic pressure is estimated to be at least 22 mmHg based on an estimated right atrial pressure of 3 mm Hg. Pulmonic Valve: The pulmonic valve is not well visualized. There is no pulmonic valvular regurgitation. Great Vessels: The aortic root is normal size. The dimensions of the ascending aorta are normal. The IVC is of normal diameter and collapses greater than 50% with a sniff. This suggests a low right atrial pressure of 3 mm Hg. Pericardium/ Pleura There is no pericardial effusion. There is no pleural effusion. MMode/2D Measurements & Calculations LVIDd: 4.8 cm LVOT diam: 2.0 cm LVIDs: 3.2 cm Ao root diam: 3.0 cm FS: 33.5 % asc Aorta Diam: 3.3 cm IVSd: 0.98 cm Ao Arch Diam (Prox Trans): 2.4 cm LVPWd: 0.94 cm LV plascencia. diameter/BSA (cm/m^2): 2.7 LV sys. diameter/BSA (cm/m^2): 1.8 LA A2 area: 19.7 cm2 RA long axis: 4.8 cm LA A4 area: 19.3 cm2 RA area: 15.0 cm2 LA length (vol): 5.3 cm RA vol: 39.8 ml LA vol: 61.3 ml RA : 22.4 ml/m2 LA vol index: 34.4 ml/m2 IVC diam: 1.8 cm RVD1 (basal): 3.7 cm RVD2 (mid): 2.7 cm TAPSE: 2.4 cm Doppler Measurements & Calculations Ao V2 max: 162.7 cm/sec LVOT Max Reilly: 120.3 cm/sec Ao V2 mean: 114.6 cm/sec LV V1 max P.8 mmHg Ao max P.6 mmHg LV V1 VTI: 23.0 cm Ao mean P.8 mmHg DENNIS(I,D): 2.3 cm2 Ao V2 VTI: 31.9 cm DENNIS(V,D): 2.4 cm2 sev ratio: 0.72 DENNIS indexed to BSA (cm^2/m^2): 1.3 MV E max reilly: 62.6 cm/sec TR max reilly: 221.2 cm/sec MV A max reilly: 100.1 cm/sec TR max P.6 mmHg MV E/A: 0.63 PA V2 max: 94.6 cm/sec Med Peak E' Reilly: 3.6 cm/sec PA V2 mean: 63.7 cm/sec E/E' med: 17.2 PA mean P.8 mmHg Lat Peak E' Reilly: 7.0 cm/sec PA pr(Accel): 32.8 mmHg E/E' lat: 9.0 E/e' average: 13.1 MV dec time: 0.29 sec SV(LVOT): 73.6 ml Reading Physician:04:16 PM
--- NOTE | 2022-11-24 10:50 | DI.MRI.S_ITS ---
PROCEDURE: MR HEAD/BRAIN WO CON INDICATIONS: syncope, rule out stroke TECHNIQUE: Noncontrast axial T1 spin echo, axial T2 fast spin echo, sagittal and axial FLAIR, coronal T2 fast spin echo, axial gradient echo, axial diffusion and ADC through the brain. COMPARISON: None. FINDINGS: Image quality: Good CSF spaces: Basal cisterns are patent. Lateral ventricles are symmetric. Volume: Volume loss. Pperiventricular white matter signal abnormality most commonly seen with small vessel disease. These findings are [id number]. Ventriculomegaly is slightly out of proportion to the degree of volume loss. Brain: No intracranial hemorrhage. [place]-white differentiation is grossly maintained. Craniofacial structures: No displaced fracture. Sinuses are clear. Orbits are intact. IMPRESSION: No acute infarct. Chronic findings as above, with ventriculomegaly slightly out of proportion to the degree of volume loss. Approved by: Lei Johnson M.D. on 11/24/2022 at 14:57
[2022-11-24 11:08] LABS: Appearance Urine UA CLEAR; Bilirubin Urine UA NEGATIVE (NEGATIVE); Color Urine UA YELLOW; Glucose Urine UA NEGATIVE (Negative); Ketones Urine UA NEGATIVE (NEGATIVE); Leukocyte Esterase Urine UA NEGATIVE (NEGATIVE); Nitrite Urine UA NEGATIVE (Negative); Occult Blood Urine UA NEGATIVE (Negative); Protein Urine UA NEGATIVE (Negative); Urobilinogen Urine UA 0.2 E.U./dL (0.2)
[2022-11-24] MEDS: ENOXAPARIN 40 MG/0.4 ML SYRINGE SUBCUT (11:08)
[2022-11-24 11:14] LABS: Bacteria Urine None Seen; Culture Indicated Urine Cult Not Indicated; RBC Urine None Seen (0-5/HPF); Urine Comments Microscopic Normal; WBC Urine None Seen (0-5/HPF)
--- NOTE | 2022-11-24 11:24 | P.HP_ITS ---
History of Present Illness History of Present Illness Date Patient Seen: 11/24/22 Chief complaint: rt hand injury, recent surgery and fall Narrative: Holly Major is a 72-year-old female with PMH of hypertension, hypothyroidism, carpal tunnel s/p L tendon release and GERD who presented to the ED after a fall while walking her dog. Patient thinks she may have gotten wrapped up in the dog leash as it was dark. She then didn't' remember much after the fall which resulted in abrasions on her face and hands. She says she has a short left leg, which results in LE weakness and she can sometimes lose her balance from that. She denies headache, CP, NV, abd pain or diarrhea. Patient History Medical History History of ectopic Hypertension Hypothyroidism (acquired) Family & Social History Family History Mother Cancer Safety & Behavioral: Feels Safe in Current Yes Environment Been Physically Hurt or No Threatened By a Person Tobacco & Substance use: Smoking Status Never smoker alcohol intake frequency other Substance Use Type does not use Meds Home Medications and Allergies Home Medications Medication Instructions Recorded Confirmed Type aspirin 81 mg tablet,delayed 81 mg PO DAILY 12/11/18 11/23/22 History release (Jaron Low Dose Aspirin) fluticasone propionate 50 1 spray intranasal DAILY 08/25/21 11/23/22 History mcg/actuation nasal spray,suspension levothyroxine 25 mcg capsule 25 mcg PO DAILY 08/25/21 11/23/22 History lisinopril 2.5 mg tablet 2.5 mg PO DAILY 08/25/21 11/23/22 History omeprazole 20 mg capsule,delayed 20 mg PO DAILY 08/25/21 11/23/22 History release Allergies Allergy/AdvReac Type Severity Reaction Status Date / Time No Known Drug Allergies Allergy Verified 11/23/22 22:56 Review of Systems Review of Systems Narrative: All other systems reviewed with the patient and are negative unless otherwise stated. Exam Vital Signs (past 8 hours): - 11/24/22 05:05 11/24/22 05:30 11/24/22 05:30 Pulse Rate 64 63 Respiratory Rate 19 20 Blood Pressure 176/82 H Pulse Oximetry 97 96 Oxygen Delivery Method Room Air 11/24/22 06:00 11/24/22 06:30 11/24/22 06:37 Pulse Rate 62 63 Respiratory Rate 21 Blood Pressure 180/86 H Pulse Oximetry 96 97 Oxygen Delivery Method 11/24/22 06:37 11/24/22 07:00 11/24/22 07:00 Pulse Rate 64 66 Respiratory Rate 22 22 Blood Pressure 190/86 H Pulse Oximetry 95 95 Oxygen Delivery Method 11/24/22 10:11 11/24/22 07:30 11/24/22 07:31 Pulse Rate 67 64 Respiratory Rate 21 Blood Pressure 163/89 H 167/79 H Pulse Oximetry Oxygen Delivery Method 11/24/22 07:31 11/24/22 08:01 11/24/22 08:30 Pulse Rate 64 73 66 Respiratory Rate 14 18 22 Blood Pressure Pulse Oximetry 92 Oxygen Delivery Method 11/24/22 09:00 11/24/22 10:13 11/24/22 10:13 Pulse Rate 67 68 Respiratory Rate 16 Blood Pressure 163/89 H Pulse Oximetry 93 93 Oxygen Delivery Method 11/24/22 10:30 11/24/22 10:31 11/24/22 10:31 Pulse Rate 67 68 Respiratory Rate Blood Pressure 149/65 H Pulse Oximetry 96 95 Oxygen Delivery Method 11/24/22 11:12 11/24/22 11:13 11/24/22 11:13 Pulse Rate 70 70 Respiratory Rate Blood Pressure 175/80 H Pulse Oximetry 97 96 Oxygen Delivery Method Oxygen Delivery Method Room Air Narrative Exam Narrative: GEN: no acute distress, appears younger than stated age HEENT: moist mucous membranes, PERRL, abrasions on face and chin NECK: trachea midline, no JVD CV: regular rate and rhythm, no murmurs PULM: clear bilaterally ABD: soft, nontender, nondistended, no organomegaly EXT: warm and well perfused with no edema, right wrist in wrap with mild abrasions NEURO: awake, alert, oriented, no focal deficits Objective Labs 11/24/22 04:30 11/24/22 04:30 Labs: Laboratory Results - last 24 hr 11/24/22 11/24/22 11/24/22 04:30 04:30 04:30 WBC 11.2 H RBC 4.58 Hgb 13.4 Hct 40.3 MCV 87.9 MCH 29.3 MCHC 33.4 RDW 13.4 Plt Count 208 Neut % (Auto) 55.7 Lymph % (Auto) 29.5 [place] % (Auto) 13.1 Eos % (Auto) 1.1 L Baso % (Auto) 0.6 Neut # (Auto) 6200 Lymph # (Auto) 3300 [place] # (Auto) 1500 H Eos # (Auto) 100 Baso # (Auto) 100 D-Dimer 1141 H Sodium 140 Potassium 3.8 Chloride 103 Carbon Dioxide 27 BUN 22 H Creatinine 0.71 Estimated GFR > 60 BUN/Creatinine Ratio 31.0 H Glucose 119 H Calcium 9.1 Magnesium 2.1 Total Bilirubin 0.5 AST 26 ALT 22 Alkaline Phosphatase 102 Troponin I 0.079 H Total Protein 7.5 Albumin 4.2 Globulin 3.3 Albumin/Globulin Ratio 1.3 Urine Color Urine Appearance Urine pH Ur Specific [place] Urine Protein Urine Glucose (UA) Urine Ketones Urine Occult Blood Urine Nitrate Urine Bilirubin Urine Urobilinogen Ur Leukocyte Esterase Urine RBC Urine WBC Urine Bacteria Ur Culture Indicated? Micro UA Comment Ethyl Alcohol < 10 SARS-CoV-2 (PCR) 11/24/22 11/24/22 11/24/22 06:30 10:06 11:00 WBC RBC Hgb Hct MCV MCH MCHC RDW Plt Count Neut % (Auto) Lymph % (Auto) [place] % (Auto) Eos % (Auto) Baso % (Auto) Neut # (Auto) Lymph # (Auto) [place] # (Auto) Eos # (Auto) Baso # (Auto) D-Dimer Sodium Potassium Chloride Carbon Dioxide BUN Creatinine Estimated GFR BUN/Creatinine Ratio Glucose Calcium Magnesium Total Bilirubin AST ALT Alkaline Phosphatase Troponin I 0.075 H Total Protein Albumin Globulin Albumin/Globulin Ratio Urine Color Yellow Urine Appearance Clear Urine pH 6.0 Ur Specific [place] 1.010 Urine Protein Negative Urine Glucose (UA) Negative Urine Ketones Negative Urine Occult Blood Negative Urine Nitrate Negative Urine Bilirubin Negative Urine Urobilinogen 0.2 Ur Leukocyte Esterase Negative Urine RBC None seen Urine WBC None seen Urine Bacteria None seen Ur Culture Indicated? Cult not indicated Micro UA Comment Microscopic normal Ethyl Alcohol SARS-CoV-2 (PCR) Negative Assessment & Plan Assessment & Plan narrative: # questionable syncope vs TIA vs concussion -patient fell and hit face then didn't remember the following short term events, most consistent with concussion -head CT negative -CTA head/neck, MRI brain, and echo all negative -ethanol negative, drug screen positive for benzos -give thiamine 500 mg IV in case of TGA -continue tele -ort negative hostatics -continue home aspirin -PT/OT eval # hypertension, chronic -hold home lisinopril until orthostatics completed # hypothyroidism, chronic -continue home Synthroid -TSH normal Code status is full code. COVID negative. DVT prophylaxis with Lovenox. Proxy is Duong. I have reviewed home meds and used all available resources to reconcile the home meds. This patient will be admitted as observation and will require less than 2 midnights of hospital time to treat syncope vs TIA workup. Time Spent With Patient Critical Care time: I spent a total of [] minutes of critical care time on this patient's care today; this time is exclusive of procedural time.
[2022-11-24 12:12] LABS: Troponin I 0.054 ng/mL (0.01-0.034)
[2022-11-24] MEDS: THIAMINE 500 MG in SODIUM CHLORIDE 0.9% 100 ML 420 MG IV (12:21)
[2022-11-24] MEDS: ASPIRIN EC 81 MG TABLET PO (12:21)
[2022-11-24 12:31] LABS: TSH w/ Reflex to FT4 2.75 uIU/mL (0.47-4.68)
[2022-11-24 14:35] LABS: UR Morphine/Opiate cutoff 300 Positive (Negative); Ur Creatinine Normal (Normal); Ur Specific Gravity Normal (Normal); Urine Amphetamines Negative (Negative); Urine Barbiturates Negative (Negative); Urine Benzodiazepines Negative (Negative); Urine Cocaine Negative (Negative); Urine MDMA Negative (Negative); Urine Methadone Negative (Negative); Urine Methamphetamines Negative (Negative); Urine Oxycodone Negative (Negative); Urine Phencyclidine Negative (Negative); Urine Tetrahydrocannabinol Negative (Negative); Urine Tricyclic Antidepressant Negative (Negative); Urine pH Normal (Normal)
--- NOTE | 2022-11-24 14:35 | PT.IIE ---
Medical History (Last Reviewed 11/24/22 @ 04:01 by Sofy Keller MD) History of ectopic Hypertension Hypothyroidism (acquired) Physical Therapy Inpatient Evaluation/Re-Eval M1 PT/OT-IP Prior Functional Status Start: 11/24/22 16:42 Freq: NEEDED Status: Active Protocol: Document 11/24/22 14:35 AB (Rec: 11/24/22 17:14 AB [email or web address]) Medical Review Prior Functional Status Medical History Reviewed Yes Communication able to make needs known Mobility and Gait pt stated that she is independent with all mobiltiies and ambulation without AD Prior Functional Level (Other details) pt s/p fall due to syncope. pt had carpal tunnel surgery on RUE and with c/o pain due to fall and per EMR in ED wound/incision is slightly opening and currently has dressing and tyesha wrap on. Social History Household Members spouse Living Arrangements House Number of Floors (Floors) Two Floors Number of Stairs To Enter/Railing? no steps to enter the house 2nd level bedroom: 12 steps L rail ascending Home Environment Standard Height Toilet,Tub/ Shower Home Equipment Straight Cane M2 PT-IP Current Condition Start: 11/24/22 16:42 Freq: NEEDED Status: Active Protocol: Document 11/24/22 14:35 AB (Rec: 11/24/22 17:14 AB [email or web address]) Physical Therapy Current Condition Current Condition Evaluation Date 11/24/22 Treatment Diagnosis syncope; difficulty in walking Onset Date 11/24/22 M3 PT-IP Subjective Start: 11/24/22 16:42 Freq: NEEDED Status: Active Protocol: Document 11/24/22 14:35 AB (Rec: 11/24/22 17:14 AB [email or web address]) Subjective Physical Therapy Visit Type Type Initial Evaluation Visit Start Time 14:35 Visit Stop Time 15:10 Total Visit Minutes 35 Number of DEPOSITION OPERATOR Visits 0 Physical Therapy Visit Comments Patient Comments agreeable to do PT Therapy Pain Assessment Pain When Pain Assessed At Rest Location Right Hand Scale Used pain scale not stated M4 PT-IP Mobility and Gait Start: 11/24/22 16:42 Freq: NEEDED Status: Active Protocol: Document 11/24/22 14:35 AB (Rec: 11/24/22 17:14 AB [email or web address]) PT-Bed Mobility Assessment Supine to Sit Supine to Sit Minimal Assistance Sit to Supine Sit to Supine Standby Assistance PT-Transfer Assessment Sit to and From Stand Sit to and from Stand Standby Assistance,Contact Guard Assistance Equipment Transfer Assistive Device None,Gait Belt Orthotic/Prosthetic Devices or Brace: No Comments Mobility Comments BP in supine: 140/74. completed supine to sit min A and cues. pt unable to use RUE to push to get up due to recent carpal tunnel sx and c/ o pain. able to sit on EOB SBA. BP in sittin/72. pt stated that she is tired and had not really rested since she has been waiting in the ED last night. completed sit to stand SBA to CGA. able to stand SBA without AD. BP in standin/77. pt able to stand for ~ 2 more minutes and BP checked again: 142/76. pt ambulated in room without AD SBA to CGA ~ 30 ft. presents wtih unsteady gait with increase unsteadiness with turning. agreed to do steps. completed up/down step using L rail min A ascending and mod A descending. repeated x 3 sets and cues for steadiness and balance. pt went back to bed and completed sit to supine SBA. positioned pt in bed. call light and table within reach. BP in supine: 148/77. Left pt with cathodic protection technician in room. Gait Assessment Gait Gait Assistance Required: Standby Assistance,Contact Guard Assist Distance (Feet) 30 Able to Maintain Weight Bearing Status Yes During Gait Assistive Devices Assistive Device None,Gait Belt Orthotic/Prosthetic Devices or Brace: No Gait Deviations General Gait Pattern Ataxic,Decreased Stride Length ,Decreased Feet Clearance Factors Limiting Gait Function Factors Limiting Gait Function Decreased Activity Tolerance, Decreased Strength,Pain,Poor Balance,Poor Safety Awareness Stair Climbing Assessment Evaluation Level of Assist On Stairs Minimal Assistance,Moderate Assistance Devices Stair Climbing Assistive Devices Left Railing Technique/Endurance Stair Climbing Direction Ascend and Descend Stair Climbing Technique Step to Step Number of Steps Climbed 1 Query Text: Stair Climbing Set # Repetitions (reps) 3 PT-Balance Assessment Sitting Balance and Reactions Static Sitting Balance Ability Normal Dynamic Sitting Balance Ability Normal Standing Balance and Reactions Static Standing Balance Ability Good Dynamic Standing Balance Ability Fair Device Used without AD M5 PT-IP Objective Assessments Start: 11/24/22 16:42 Freq: NEEDED Status: Active Protocol: Document 11/24/22 14:35 AB (Rec: 11/24/22 17:14 AB [id number]) Orientation Orientation/Cognition Level of Alertness Alert Orientation Name,Place,Situation Language Function Ability No Deficits Noted Safety Awareness Decreased Safety Awareness Gross Range of Motion Lower Extremity ROM Assessment Within Functional Limits Strength Lower Extremity Strength Hip 4-/5 Knee 4-/5 Muscle Tone Muscle Tone WNL Yes M6 PT-IP Treatment Start: 11/24/22 16:42 Freq: NEEDED Status: Active Protocol: Document 11/24/22 14:35 AB (Rec: 11/24/22 17:14 AB [id number]) Physical Therapy Treatment Education Education Provided Safety M7 PT-IP Assessment and Plan Start: 11/24/22 16:42 Freq: NEEDED Status: Active Protocol: Document 11/24/22 14:35 AB (Rec: 11/24/22 17:14 AB [email or web address]) PT Summary Assessment and Plan Potential Rehabilitation Potential Fair Status of Condition at Evaluation Stable Summary Impairments Pain,Strength,Balance, Coordination,Sensation,Tone, Cognition,Bed Mobility, Transfers,Gait,Activity Tolerance Assessment Summary pt requiring SBA to CGA with ambulation without AD but requiring min A to mod A for stair climbing. pt plans to go home and spouse to assist her. will continue to assess progress. pt may benefit from outpt PT. Goals Bed Mobility Goal Independent Transfer Goal Independent Gait Goal Independent Gait Distance 150 Other Goals up/down 12 steps L rail ascending SBA Days to Meet Goals 10 Frequency of Treatment Frequency Of Treatment Once a Day Treatment Plan Physical Therapy Treatment Plan Bed Mobility Training,Transfer Training,Gait Training, Therapeutic Exercise,Balance Retraining,Discharge Planning, Hot or Cold Pack,Neuromuscular Re-ed,Coordination Retraining ,Manual Therapy Precautions Other Precautions falls Recommendations To Nursing Amount of Assist Needed 1 Person Assist Discharge Recommendations PT Discharge Recommendations Home with Assistance, Outpatient PT Transportation Needs at Discharge Private Vehicle,Wheelchair/ Cabulance
--- NOTE | 2022-11-24 16:36 | OT.IPNOTE ---
Able to just get prior history from pt as too tired and wanting to rest at this time. Able to let hospitalist know that pt's complaining of her right wrist being swollen and stiff. Dr. Yoon states to touch base with Dr. Pereira, as pt had carpal tunnel sx with him 10/27/22. To check on pt tomorrow for Ot eval.
[2022-11-24] MEDS: ACETAMINOPHEN 325 MG TABLET 650 MG PO (16:43)
[2022-11-25] VITALS: BP 135/71; PULSE 68; RESP 20; TEMP 36.6; O2SAT 97
[2022-11-25 04:00] VITALS: BP 155/81; PULSE 65; RESP 17; TEMP 36.8; O2SAT 95
[2022-11-25] MEDS: LEVOTHYROXINE 25 MCG TABLET PO (05:19)
[2022-11-25] MEDS: PANTOPRAZOLE DR 20 MG TABLET PO (05:19)
[2022-11-25 06:27] LABS: Add Manual Diff / Slide Review NO; Basophils Absolute Auto 100 /uL (0-100); Basophils Percent Auto 0.8 % (0-2); Eosinophils Absolute Auto 200 /uL (0-450); Eosinophils Percent Auto 3.5 % (2-4); Hemoglobin 13.4 g/dL (12.0-16.0); Lymphocytes Absolute Auto 2900 /uL (1100-4500); Lymphocytes Percent Auto 42.4 % (25-40); Mean Corpuscular HGB Conc 33.5 % (30-36); Mean Corpuscular Hemoglobin 29.3 PG (26-34); Mean Corpuscular Volume 87.5 fL (80-100); Monocytes Absolute Auto 800 /uL (0-900); Neutrophils Absolute Auto 2900 /uL (1500-7000); Neutrophils Percent Auto 42.3 % (50-75); Platelet Count 197 X10^3/uL (150-400); Red Blood Cell Count 4.57 X10^6/uL (4.0-5.2); Red Cell Distribution Width 13.5 % (11.6-14.8); White Blood Cell Count 6.9 X10^3/uL (4.5-11.0)
[2022-11-25 06:36] LABS: BUN Creatinine Ratio 25.4 (6-22); Blood Urea Nitrogen 16 mg/dL (7-17); Calcium 8.6 mg/dL (8.4-10.2); Carbon Dioxide 26 mmol/L (22-32); Chloride 106 mmol/L (98-107); Estimated Glomerular Filt Rate > 60 mL/min (>60); Glucose 101 mg/dL (80-110); HEMOLYSIS < 15 (0-50); Potassium 3.8 mmol/L (3.4-5.1); Sodium 142 mmol/L (137-145)
[2022-11-25 07:45] VITALS: BP 144/55; PULSE 73; RESP 19; TEMP 37.1; O2SAT 97
[2022-11-25] MEDS: ASPIRIN EC 81 MG TABLET PO (08:07)
[2022-11-25] MEDS: ACETAMINOPHEN 325 MG TABLET 650 MG PO (08:07)
--- NOTE | 2022-11-25 08:08 | P.DS_ITS ---
History of Present Illness History of Present Illness Date Patient Seen: 11/25/22 Chief complaint: rt hand injury, recent surgery and fall Narrative: Holly Major is a 72-year-old female with PMH of hypertension, hypothyroidism, carpal tunnel s/p L tendon release and GERD who presented to the ED after a fall while walking her dog. Patient thinks she may have gotten wrapped up in the dog leash as it was dark. She then didn't' remember much after the fall which resulted in abrasions on her face and hands. She says she has a short left leg, which results in LE weakness and she can sometimes lose her balance from that. She denies headache, CP, NV, abd pain or diarrhea. Discharge Providers Provider Date of admission: 11/24/22 11:05 Discharge Date: 11/25/22 Primary care physician: Black De Luna DO Consults: 11/24/22 10:48 Consult to Occupational Therapy Evaluate & Treat Comment: Physician Instructions: Evaluate and treat Consult to Physical Therapy Evaluate & Treat Comment: Physician Instructions: Evaluate and Treat Discharge provider: Gio Yoon DO Summary Hospital Course Discharge Diagnosis: # questionable syncope vs TIA vs concussion -patient fell and hit face then didn't remember the following short term events, most consistent with concussion -head CT negative -CTA head/neck, MRI brain, and echo all negative -ethanol negative, drug screen positive for benzos -give thiamine 500 mg IV in case of TGA -continue tele -ort negative hostatics -continue home aspirin -PT/OT eval # hypertension, chronic -hold home lisinopril until orthostatics completed # hypothyroidism, chronic -continue home Synthroid -TSH normal Hospital Course: Admitted for fall in the nava while walking her dog and striking her face, then had memory loss afterward. MRI brain, CT head, CTA head and echo were all reassuring and no stroke or other pathology seen. She likely sustained a mild consussion from the fall, which in hindsight she thinks was due to tripping over the dog leash in the dark. Time Spent with Patient Time spent: Greater than 30 minutes Exam Vital Signs (past 8 hours): - 11/25/22 04:00 Temperature 98.2 F Pulse Rate 65 Respiratory Rate 17 Blood Pressure 155/81 H Pulse Oximetry 95 Oxygen Delivery Method Room Air Oxygen Flow Rate 0 Narrative Exam Narrative: GEN: no acute distress, appears younger than stated age HEENT: moist mucous membranes, PERRL, abrasions on face and chin NECK: trachea midline, no JVD CV: regular rate and rhythm, no murmurs PULM: clear bilaterally ABD: soft, nontender, nondistended, no organomegaly EXT: warm and well perfused with no edema, right wrist in wrap with mild abrasions NEURO: awake, alert, oriented, no focal deficits Objective Labs 11/25/22 05:11 11/25/22 05:11 Labs: Laboratory Results - last 24 hr 11/24/22 11/24/22 11/24/22 10:06 11:00 11:00 WBC RBC Hgb Hct MCV MCH MCHC RDW Plt Count Neut % (Auto) Lymph % (Auto) [place] % (Auto) Eos % (Auto) Baso % (Auto) Neut # (Auto) Lymph # (Auto) [place] # (Auto) Eos # (Auto) Baso # (Auto) Sodium Potassium Chloride Carbon Dioxide BUN Creatinine Estimated GFR BUN/Creatinine Ratio Glucose Calcium Troponin I TSH Urine Color Yellow Urine Appearance Clear Urine pH 6.0 Ur Specific [place] 1.010 Urine Protein Negative Urine Glucose (UA) Negative Urine Ketones Negative Urine Occult Blood Negative Urine Nitrate Negative Urine Bilirubin Negative Urine Urobilinogen 0.2 Ur Leukocyte Esterase Negative Urine RBC None seen Urine WBC None seen Urine Bacteria None seen Ur Culture Indicated? Cult not indicated Micro UA Comment Microscopic normal U Opiates 300ng/mL cut Positive H Ur Oxycodone Screen Negative Urine Methadone Screen Negative Ur Barbiturates Screen Negative U Tricyclic Antidepress Negative Ur Phencyclidine Scrn Negative Ur Amphetamines Screen Negative U Methamphetamines Scrn Negative Ur MDMA Scrn (Ecstasy) Negative U Benzodiazepines Scrn Negative Urine Cocaine Screen Negative U Marijuana (THC) Screen Negative SARS-CoV-2 (PCR) Negative 11/24/22 11/24/22 11/25/22 11:21 11:21 05:11 WBC 6.9 RBC 4.57 Hgb 13.4 Hct 40.0 MCV 87.5 MCH 29.3 MCHC 33.5 RDW 13.5 Plt Count 197 Neut % (Auto) 42.3 L Lymph % (Auto) 42.4 H [place] % (Auto) 11.0 Eos % (Auto) 3.5 Baso % (Auto) 0.8 Neut # (Auto) 2900 Lymph # (Auto) 2900 [place] # (Auto) 800 Eos # (Auto) 200 Baso # (Auto) 100 Sodium Potassium Chloride Carbon Dioxide BUN Creatinine Estimated GFR BUN/Creatinine Ratio Glucose Calcium Troponin I 0.054 H TSH 2.75 Urine Color Urine Appearance Urine pH Ur Specific [place] Urine Protein Urine Glucose (UA) Urine Ketones Urine Occult Blood Urine Nitrate Urine Bilirubin Urine Urobilinogen Ur Leukocyte Esterase Urine RBC Urine WBC Urine Bacteria Ur Culture Indicated? Micro UA Comment U Opiates 300ng/mL cut Ur Oxycodone Screen Urine Methadone Screen Ur Barbiturates Screen U Tricyclic Antidepress Ur Phencyclidine Scrn Ur Amphetamines Screen U Methamphetamines Scrn Ur MDMA Scrn (Ecstasy) U Benzodiazepines Scrn Urine Cocaine Screen U Marijuana (THC) Screen SARS-CoV-2 (PCR) 11/25/22 05:11 WBC RBC Hgb Hct MCV MCH MCHC RDW Plt Count Neut % (Auto) Lymph % (Auto) [place] % (Auto) Eos % (Auto) Baso % (Auto) Neut # (Auto) Lymph # (Auto) [place] # (Auto) Eos # (Auto) Baso # (Auto) Sodium 142 Potassium 3.8 Chloride 106 Carbon Dioxide 26 BUN 16 Creatinine 0.63 Estimated GFR > 60 BUN/Creatinine Ratio 25.4 H Glucose 101 Calcium 8.6 Troponin I TSH Urine Color Urine Appearance Urine pH Ur Specific [place] Urine Protein Urine Glucose (UA) Urine Ketones Urine Occult Blood Urine Nitrate Urine Bilirubin Urine Urobilinogen Ur Leukocyte Esterase Urine RBC Urine WBC Urine Bacteria Ur Culture Indicated? Micro UA Comment U Opiates 300ng/mL cut Ur Oxycodone Screen Urine Methadone Screen Ur Barbiturates Screen U Tricyclic Antidepress Ur Phencyclidine Scrn Ur Amphetamines Screen U Methamphetamines Scrn Ur MDMA Scrn (Ecstasy) U Benzodiazepines Scrn Urine Cocaine Screen U Marijuana (THC) Screen SARS-CoV-2 (PCR) [facility] Medical History History of ectopic Hypertension Hypothyroidism (acquired) Family History Mother Cancer Social History household members: spouse Smoking Status: Never smoker Discharge Plan Discharge Plan Patient Disposition: Home Provider Discharge Comment: All of your workup for stroke was negative. You may have suffered a mild concussion which led to your memory loss after your fall. Discharge orders & Medications Prescriptions: Continued aspirin [Jaron Low Dose Aspirin] 81 mg tablet,delayed release (DR/EC) 81 mg PO DAILY lisinopril 2.5 mg tablet 2.5 mg PO DAILY levothyroxine 25 mcg capsule 25 mcg PO DAILY omeprazole 20 mg capsule,delayed release(DR/EC) 20 mg PO DAILY fluticasone propionate 50 mcg/actuation spray,suspension 1 spray intranasal DAILY Rx Instructions: administer into each nostril Follow up/Referrals: Black De Luna DO [Primary Care Provider] - 2 Weeks Visit Report/Discharge Packet Stand Alone Forms: Patient Portal/API, Stroke Signs & Symptoms Discharge Data Primary Care Provider: Black De Luna Attending Provider: Gio Yoon
--- NOTE | 2022-11-25 09:09 | OT.IPNOTE ---
Pt already dressed and up in front of the sink when OT came to see pt. Noted right hand not as swollen as well and pt states her hand was re-dressed last night. Pt states feels back to baseline and not wanting any OT and to follow up with her hand surgeon. Pt states will be sleeping downstairs in the spare bedroom until her hand heals up more so able to tank erector the railing better for the 12 steps upstairs to the bedroom at this time. NO charge
--- NOTE | 2022-11-25 09:16 | CM.DANOTE ---
Initial DCP Assessment Note Pt is a 72 yo female, resident of [place], presented to the ER . after a fall walking her dog. According to Dr Yoon: Admitted for fall in the nava while walking her dog and striking her face, then had memory loss afterward. MRI brain, CT head, CTA head and echo were all reassuring and no stroke or other pathology seen. She likely sustained a mild consussion from the fall, which in hindsight she thinks was due to tripping over the dog leash in the dark. PCP: Black De Luna Payer: DAYANA/yesi Reviewed chart, patient cleared by Dr Yoon and therapy team for discharge back home w/close outpatient follow up. Patient back to functional and cognitive baseline and eager to return home No barriers identified at this time to patient's safe discharge home w/family to assist; close outpatient f/u recommended. RADHA Contreras Discharge Planning/Care Management CM Discharge Assessment Start: 11/25/22 09:14 Freq: Status: Active Protocol: Document 11/25/22 09:14 ERIKA (Rec: 11/25/22 09:16 ERIKA [id number]) Discharge Planning Assessment Assigned Rural [employer] RADHA Alberts DPOA/Assigned Designee Name Duong Major, spouse Contact Information [phone] Advance Directives? No History Provided By Patient,Medical Record Prior Living Arrangements House Household Members spouse Type of transporation used prior to Drives own vehicle admit Independent with ADL's Yes Is patient alert and oriented? Yes Patient/Family Preference OP PT Therapy Barriers to Discharge No Comment Home w/spouse. Back to functional and cognitive baseline Discharge Plan Home Transportation Arrangement Spouse Referrals Initiated None needed
== END 2022-11-25 09:49 | disposition home or self-care (01) ==
LOC: ED 11-24 09:36 → AC 11-24 11:06
PROVIDERS: Emergency Medicine; Admitting Provider Student in an Organized Health Care Education/Training Program; Emergency Provider Emergency Medicine; Family Provider Nurse Practitioner; PCP Family Medicine; Referring Provider Emergency Medicine; Visit Provider Student in an Organized Health Care Education/Training Program
DX: S60.511A Abrasion of right hand, initial encounter (principal); S00.81XA Abrasion of other part of head, initial encounter; Z98.890 Other specified postprocedural states; W01.10XA Fall on same level from slipping, tripping and stumbling with subsequent striking against unspecified object, initial encounter; Y93.K1 Activity, walking an animal; I10 Essential (primary) hypertension; E03.9 Hypothyroidism, unspecified; R41.3 Other amnesia; R79.1 Abnormal coagulation profile; Z20.822 Contact with and (suspected) exposure to COVID-19
CPT/HCPCS: 36415; 70450; 70496; 70498; 70551; 71275; 72125; 80048; 80053; 80305; 80320; 81001; 83735; 84443; 84484; 85025; 85379; 87635; 93005; 93306; 96360; 97162; 99284; C9803; G0378; J1650; Q9967